=== PATIENT | male | born 1975 | race Two or more races ===

== ENCOUNTER 2019-03-19 11:09 | Inpatient (IN) | payer OTHER ==
[2019-03-19 17:10] VITALS: BMI 27.1
--- NOTE | 2019-03-19 17:39 | HP ---
CIWA Score Nausea/Vomitin-No Nausea/No Vomiting Muscle Tremors: None Anxiety: 1-Mildly Anxious Agitation: 3 Paroxysmal Sweats: No Perspiration (Increased facial moisture) Orientation: 0-Oriented Tacttile Disturbances: 0-None Auditory Disturbances: 0-None Visual Disturbances: 0-None Headache: 0-None Present CIWA-Ar Total Score: 4 - Admission Criteria OASAS Guidelines: Admission for Medically Managed Detox: Requires at least one of the followin. CIWA greater than 12 2. Seizures within the past 24 hours 3. Delirium tremens within the past 24 hours 4. Hallucinations within the past 24 hours 5. Acute intervention needed for co occurring medical disorder 6. Acute intervention needed for co occurring psychiatric disorder 7. Severe withdrawal that cannot be handled at a lower level of care (continued vomiting, continued diarrhea, abnormal vital signs) requiring intravenous medication and/or fluids 8. Admission ROS [facility] Chief Complaint: States mandated here by courts. Denies withdrawal symptoms. Allergies/Adverse Reactions: Allergies Allergy/AdvReac Type Severity Reaction Status Date / Time No Known Allergies Allergy Verified 03/19/19 17:03 History of Present Illness: Here for admission because of drug use. Last drink this am. States never has withdrawal symptoms when stops. Alcohol use began at age 15. States current use for many years. Marijuana use began at age 13. States used $50-$ 60 daily (States heavy marijuana use) Cocaine use began at age 22. 1 gm daily intra-nasal PCP use began at age @ 21. Nicotine use since age 13. Denies seizures, blackouts, overdoses. PMHx: (L) knee pain; MHHx: Insomnia. Some anxiety. Denies depression. Denies MH issues. Denies thoughts of harming self or others. Based on CIWA and substance use history, will admit to rehab. Patient Name: Yuan Palacio Date: 1975 Address: [address] [place] [address] Sex: Male Rx Written Rx Dispensed Drug Quantity Days Supply Prescriber Name 04/06/2018 04/06/2018 chlordiazepoxide 25 mg capsule 26 5 Elvis Musa Exam Limitations: No Limitations - Ebola screening Have you traveled outside of the country in the last 21 days: No Have you had contact with anyone from an Ebola affected area: No Have you been sick,other than usual withdrawal symptoms: No (No contact with measles) Do you have a fever: No - Review of Systems Constitutional: Changes in sleep (Difficulty falling asleep) EENT: reports: No Symptoms Reported Respiratory: reports: No Symptoms reported Cardiac: reports: No Symptoms Reported GI: reports: No Symptoms Reported : reports: No Symptoms Reported Musculoskeletal: reports: Joint Pain (Sharp (L) knee pain x 2 months. Pain is a "6". Increases with sleep. Improves w/ walking.) Integumentary: reports: No Symptoms Reported Neuro: reports: No Symptoms reported Endocrine: reports: No Symptoms Reported Hematology: reports: No Symptoms Reported Psychiatric: reports: Judgement Intact, Orientated x3, Agitated, Anxious Patient History - Patient Medical History Hx Asthma: No Hx Chronic Obstructive Pulmonary Disease (COPD): No Hx Cardiac Disorders: No Hx Hypertension: No Hx Seizures: No Hx Diabetes: No Hx Gastrointestinal Disorders: No Hx Genitourinary Disorders: No Hx Sexually Transmitted Disorders: No Hx Renal Disease (ESRD): No Hx Human Immunodeficiency Virus (HIV): No Hx Hepatitis C: No Hx Depression: Yes Hx Suicide Attempt: No Hx Bipolar Disorder: No Hx Schizophrenia: No - Patient Surgical History Past Surgical History: No - PPD History Previous Implant?: Yes Documented Results: Negative w/o proof Implanted On Prior [facility] Admission?: Yes Date: 03/14/14 PPD to be Administered?: Yes - Smoking Cessation Smoking history: Current every day smoker Have you smoked in the past 12 months: Yes Aproximately how many cigarettes per day: 7 Hx Chewing Tobacco Use: No Initiated information on smoking cessation: Yes 'Breaking Loose' booklet given: 03/19/19 - Substance & Tx. History Hx Alcohol Use: Yes Hx Substance Use: Yes Substance Use Type: Alcohol, Cocaine, Marijuana, Tranquilizers (PCP) Hx Substance Use Treatment: Yes (outpatient) - Substances abused Alcohol Substance route: Oral Frequency: Daily Amount used: 1/5TH BACARDI Age of first use: 15 Date of last use: 03/19/19 PCP Substance route: Smoking Frequency: Daily Amount used: 3-4 BAGS Age of first use: 21 Date of last use: 03/19/19 Family Disease History - Family Disease History Family Disease History: Diabetes: Mother Admission Physical Exam [facility] - Vital Signs Vital Signs: Vital Signs - 24 hr 03/19/19 17:05 Temperature 98.1 F Pulse Rate 90 Respiratory 18 Rate Blood Pressure 117/75 - Physical General Appearance: Yes: No Apparent Distress, Nourished, Anxious HEENTM: Yes: EOMI, Hearing grossly Normal, Normocephalic, Normal Voice, DARION, Pharynx Normal Respiratory: Yes: Lungs Clear, Normal Breath Sounds, No Respiratory Distress Neck: Yes: No masses,lesions,Nodules, Supple Breast: Yes: Breast Exam Deferred Cardiology: Yes: Regular Rhythm, Regular Rate, S1, S2 Abdominal: Yes: Normal Bowel Sounds, Non Tender, Flat, Soft Genitourinary: Yes: Within Normal Limits Back: Yes: Normal Inspection Musculoskeletal: Yes: full range of Motion, Gait Steady Extremities: Yes: Normal Capillary Refill, Non-Tender 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 intact, Fully Oriented, Alert, Motor Strength 5/5 Integumentary: Yes: Normal Color, Dry, Warm Lymphatic: Yes: Within Normal Limits - Diagnostic (1) Cocaine dependence, uncomplicated Current Visit: Yes Status: Chronic (2) Nicotine dependence, uncomplicated Current Visit: Yes Status: Chronic Qualifiers: Nicotine product type: cigarettes Qualified Code(s): F17.210 - Nicotine dependence, cigarettes, uncomplicated (3) Insomnia Current Visit: Yes Status: Chronic Qualifiers: Insomnia type: unspecified Qualified Code(s): G47.00 - Insomnia, unspecified (4) Knee pain, left Current Visit: Yes Status: Chronic Qualifiers: Chronicity: chronic Qualified Code(s): M25.562 - Pain in left knee; G89.29 - Other chronic pain (5) Alcohol dependence Current Visit: Yes Status: Chronic Qualifiers: Substance use status: uncomplicated Qualified Code(s): F10.20 - Alcohol dependence, uncomplicated (6) Cannabis dependence Current Visit: Yes Status: Chronic (7) PCP dependence Current Visit: Yes Status: Chronic Cleared for Admission [facility] - Detox or Rehab Claeared for Rehab Admission: Yes Breathalyzer - Breathalyzer Breathalyzer: 0 Urine Drug Screen - Test Device Lot number: [id number] Expiration date: 02/29/20 - Control Is test valid?: Yes - Results Drug screen NEGATIVE: No Urine drug screen results: THC-Marijuana, SANYA-Cocaine Inpatient Rehab Admission - Rehab Decision to Admit Inpatient rehab admission?: Yes - Initial Determination Are CD services needed?: Yes Free of communicable disease: Yes Not in need of hospitalization: Yes - Rehab Admission Criteria Previous failed treatment: Yes Poor recovery environment: Yes Comorbidities: No Lacks judgement: No Patient is meeting Inpatient Rehab admission criteria:: Yes
[2019-03-19] MEDS ORDERED: guaiFENesin 200 MG/10 ML 10 ML UNIT-DOSE CUPS PO PRN (18:08)
[2019-03-19] MEDS ORDERED: MAGNESIUM CITRATE 300 ML BOTTLE PO PRN (18:08)
[2019-03-19] MEDS ORDERED: NICOTINE POLACRILEX 2 MG GUM BC PRN (18:08)
[2019-03-19] MEDS ORDERED: IBUPROFEN 400 MG TABLET (FP) PO PRN (18:08)
[2019-03-19] MEDS ORDERED: hydrOXYzine PAMOATE 50 MG CAPSULE (FP) PO PRN (18:08)
[2019-03-19] MEDS ORDERED: MAGNESIUM HYDROX 2400MG/30ML ORAL SUSPENSION 30 ML CUP PO PRN (18:08)
[2019-03-19] MEDS ORDERED: LOPERAMIDE HCL 2 MG CAPSULE PO PRN (18:08)
[2019-03-19] MEDS ORDERED: ACETAMINOPHEN 325 MG TABLET (FP) PO PRN (18:08)
[2019-03-19] MEDS ORDERED: MAG HYDROX/AL HYDROX/SIMETH 30 ML UNIT-DOSE CUP PO PRN (18:08)
[2019-03-19] MEDS ORDERED: MENTHOL/PHENOL 1 EACH UD MM PRN (18:08)
[2019-03-19] MEDS ORDERED: P-EPHED 60MG/TRIPROLIDI 2.5MG TABLET PO PRN (18:08)
[2019-03-19] MEDS ORDERED: ONDANSETRON *ODT* 4 MG TABLET SL PRN (18:11)
[2019-03-19] MEDS ORDERED: TUBERCULIN PPD 5 TU/0.1ML VIAL ID ONE (20:00)
[2019-03-19 20:15] LABS: PH,URINE 5.5 (5.0-8.0); URINE APPEARANCE CLEAR; URINE BILIRUBIN NEGATIVE (NEGATIVE); URINE COLOR YELLOW; URINE GLUCOSE (UA) NEGATIVE (NEGATIVE); URINE KETONE NEGATIVE (NEGATIVE); URINE LEUK ESTERASE NEGATIVE (NEGATIVE); URINE NITRITE NEGATIVE (NEGATIVE); URINE PROTEIN NEGATIVE (NEGATIVE); URINE UROBILINOGEN 0.2 mg/dL (0.2-1.0)
[2019-03-19] MEDS: THIAMINE HCL 100 MG TABLET (FP) PO SCH (21:41)
[2019-03-19] MEDS: MELATONIN 5 MG TABLETS PO PRN (21:41)
[2019-03-19] MEDS: traZODone HCL 50 MG TABLET (FP) PO SCH (21:43)
[2019-03-20] MEDS: PRENATAL VITAMINS W/ FOLIC ACID TABLET (FP) PO SCH (10:51)
[2019-03-20] MEDS: NICOTINE 14 MG/24 HOURS TOPICAL PATCH TD SCH (10:51)
[2019-03-20 11:00] LABS: ALBUMIN 3.4 g/dl (3.4-5.0); ALK PHOS 97 U/L (45-117); ANION GAP 4 MMOL/L (8-16); BILIRUBIN,TOTAL 0.3 mg/dL (0.2-1); BLOOD UREA NITROGEN 14 mg/dL (7-18); CHLORIDE 107 mmol/L (98-107); CO2 28 mmol/L (21-32); GLUCOSE,RANDOM 94 mg/dL (74-106); POTASSIUM 4.3 mmol/L (3.5-5.1); SGOT/AST 17 U/L (15-37); SGPT/ALT 37 U/L (13-61); SODIUM 139 mmol/L (136-145); TOT PROT 6.8 g/dl (6.4-8.2)
[2019-03-20 11:01] LABS: HEMATOCRIT 40.4 % (35.4-49); HEMOGLOBIN 13.6 GM/dL (11.7-16.9); MCH 30.6 pg (25.7-33.7); MCHC 33.6 g/dl (32.0-35.9); MEAN CELL VOLUME 91.3 fl (80-96); MEAN PLT VOLUME 9.4 fl (7.5-11.1); PLATELET COUNT 247 K/MM3 (134-434); RBC 4.43 M/mm3 (4.00-5.60); WHITE BLOOD COUNT 6.5 K/mm3 (4.0-10.0)
[2019-03-20] MEDS: THIAMINE HCL 100 MG TABLET (FP) PO SCH (21:19)
[2019-03-20] MEDS: traZODone HCL 50 MG TABLET (FP) PO SCH (21:19)
[2019-03-20] MEDS: MELATONIN 5 MG TABLETS PO PRN (21:19)
[2019-03-21] MEDS: NICOTINE 14 MG/24 HOURS TOPICAL PATCH TD SCH (09:41)
[2019-03-21] MEDS: PRENATAL VITAMINS W/ FOLIC ACID TABLET (FP) PO SCH (09:41)
--- NOTE | 2019-03-21 14:29 | EKG ---
Test Reason : Blood Pressure : / mmHG Vent. Rate : 083 BPM Atrial Rate : 083 BPM P-R Int : 152 ms QRS Dur : 094 ms QT Int : 360 ms P-R-T Axes : 071 058 052 degrees QTc Int : 423 ms NORMAL SINUS RHYTHM NORMAL ECG NO PREVIOUS ECGS AVAILABLE Confirmed by MD NANCY, TUAN ([id number]) on 03/21/2019 2:28:59 PM Referred By: Confirmed By:TUAN CRUZ MD
[2019-03-21] MEDS: THIAMINE HCL 100 MG TABLET (FP) PO SCH (21:30)
[2019-03-21] MEDS: traZODone HCL 50 MG TABLET (FP) PO SCH (21:30)
[2019-03-22] MEDS: NICOTINE 14 MG/24 HOURS TOPICAL PATCH TD SCH (10:22)
[2019-03-22] MEDS: PRENATAL VITAMINS W/ FOLIC ACID TABLET (FP) PO SCH (10:22)
[2019-03-22] MEDS: THIAMINE HCL 100 MG TABLET (FP) PO SCH (21:11)
[2019-03-22] MEDS: traZODone HCL 50 MG TABLET (FP) PO SCH (21:11)
[2019-03-22] MEDS: MELATONIN 5 MG TABLETS PO PRN (21:11)
[2019-03-23] MEDS: NICOTINE 14 MG/24 HOURS TOPICAL PATCH TD SCH (10:28)
[2019-03-23] MEDS: PRENATAL VITAMINS W/ FOLIC ACID TABLET (FP) PO SCH (10:28)
[2019-03-23] MEDS: traZODone HCL 50 MG TABLET (FP) PO SCH (21:44)
[2019-03-23] MEDS: THIAMINE HCL 100 MG TABLET (FP) PO SCH (21:44)
[2019-03-24] MEDS: PRENATAL VITAMINS W/ FOLIC ACID TABLET (FP) PO SCH (10:09)
[2019-03-24] MEDS: NICOTINE 14 MG/24 HOURS TOPICAL PATCH TD SCH (10:09)
[2019-03-24] MEDS ORDERED: COLLOIDAL OATMEAL 1 BAR EACH TP PRN (14:22)
[2019-03-24] MEDS: traZODone HCL 50 MG TABLET (FP) PO SCH (21:38)
[2019-03-24] MEDS: MELATONIN 5 MG TABLETS PO PRN (21:38)
[2019-03-24] MEDS: THIAMINE HCL 100 MG TABLET (FP) PO SCH (21:38)
[2019-03-25] MEDS: PRENATAL VITAMINS W/ FOLIC ACID TABLET (FP) PO SCH (09:59)
[2019-03-25] MEDS: NICOTINE 14 MG/24 HOURS TOPICAL PATCH TD SCH (10:00)
[2019-03-25] MEDS: traZODone HCL 50 MG TABLET (FP) PO SCH (21:14)
[2019-03-25] MEDS: MELATONIN 5 MG TABLETS PO PRN (21:14)
[2019-03-25] MEDS: THIAMINE HCL 100 MG TABLET (FP) PO SCH (21:14)
[2019-03-26 07:01] VITALS: BP 94/56; PULSE 76; TEMP 97.5
[2019-03-26] MEDS: PRENATAL VITAMINS W/ FOLIC ACID TABLET (FP) PO SCH (10:13)
[2019-03-26] MEDS: NICOTINE 14 MG/24 HOURS TOPICAL PATCH TD SCH (10:13)
--- NOTE | 2019-03-26 11:30 | PN ---
S Progress Note Note: c/o left knee and left shoulder pain. States he was supposed to have knee surgery, but had to come to rehab first. Also states he has a tear in the left shoulder. Has had motrin and tylenol with minimal effect. PE: shoulder and knee with limited ROM, crepitis. Plan: GEOVANY bandage and lidocaine patch ordered.
[2019-03-26] MEDS: LIDOCAINE 5% TOPICAL PATCH TP SCH (13:14)
[2019-03-26] MEDS: traZODone HCL 50 MG TABLET (FP) PO SCH (21:30)
[2019-03-26] MEDS: THIAMINE HCL 100 MG TABLET (FP) PO SCH (21:30)
[2019-03-26] MEDS: MELATONIN 5 MG TABLETS PO PRN (21:30)
[2019-03-26] MEDS ORDERED: LIDOCAINE PATCH REMOVAL MC SCH (22:00)
[2019-03-27] MEDS: PRENATAL VITAMINS W/ FOLIC ACID TABLET (FP) PO SCH (10:49)
[2019-03-27] MEDS: LIDOCAINE 5% TOPICAL PATCH TP SCH (10:49)
[2019-03-27] MEDS: NICOTINE 14 MG/24 HOURS TOPICAL PATCH TD SCH (10:50)
--- NOTE | 2019-03-27 12:10 | PN ---
[facility] Progress Note Note: PT SIGNED AMA TODAY, HE STATES "I DON'T LIKE THIS PLACE ANYMORE, I CAN'T WATCH MY TV PROGRAMS I WANT". ATTEMPT TO LET PT STAY AND CONTINUE TREATMENT FAILED. PT REPORTS HE HAS NO PCP BECAUSE HE DOESN'T SEE ANY NEED FOR IT. PT IS EDUCATED ON THE IMPORTANCE OF HAVING A PCP BUT STILL TO KNOW AVAIL. PT STATES " I WILL GET ONE WHEN I'M 49YRS OLD". PT REFUSED TO FOLLOW UP WITH OUTPATIENT CD PROGRAM, NEW [facility]OC[facility] OUTPATIENT REFERRED BY HIS COUNSELOR, MS VINCENZO CONLEY BUT INSTEAD REPORTS HE IS GOING TO [facility] TO CONTINUE HIS CD TREATMENT. PT IS AOX3 AND IN NO DISTRESS AT THE MOMENT. DENIES ANY SI/HI AT THIS TIME. Lab Results WBC 6.5 K/mm3 (4.0-10.0) 03/20/19 07:00 RBC 4.43 M/mm3 (4.00-5.60) 03/20/19 07:00 Hgb 13.6 GM/dL (11.7-16.9) 03/20/19 07:00 Hct 40.4 % (35.4-49) 03/20/19 07:00 MCV 91.3 fl (80-96) 03/20/19 07:00 MCHC 33.6 g/dl (32.0-35.9) 03/20/19 07:00 RDW 14.0 % (11.9-15.9) 03/20/19 07:00 Plt Count 247 K/MM3 (134-434) 03/20/19 07:00 Sodium 139 mmol/L (136-145) 03/20/19 07:00 Potassium 4.3 mmol/L (3.5-5.1) 03/20/19 07:00 Chloride 107 mmol/L (98-107) 03/20/19 07:00 Carbon Dioxide 28 mmol/L (21-32) 03/20/19 07:00 Anion Gap 4 MMOL/L (8-16) L 03/20/19 07:00 BUN 14 mg/dL (7-18) 03/20/19 07:00 Creatinine 1.0 mg/dL (0.55-1.3) 03/20/19 07:00 Random Glucose 94 mg/dL (74-106) 03/20/19 07:00 Calcium 9.0 mg/dL (8.5-10.1) 03/20/19 07:00 Vital Signs 03/27/19 06:39 Respiratory 18 Rate Vital Signs - 24 hr 03/27/19 03/27/19 03/27/19 00:30 03:30 06:39 Respiratory 18 18 18 Rate LABS NOTED NAD MEDICALLY STABLE PLAN:FOLLOW-UP WITH CD AFTERCARE TO [facility] ( PER PT) FOLLOW-UP WITH A MEDICAL PRACTIONER WITHIN 1-2WEEKS.
== END 2019-03-27 12:45 | disposition left against medical advice (07) | DRG 770 ==
LOC: YASAS 11:09 → Y3W 18:03
PROVIDERS: ADMIT Neuromusculoskeletal Medicine & OMM; ATTEND Neuromusculoskeletal Medicine & OMM
PROC: HZ42ZZZ Group Counseling for Substance Abuse Treatment, Cognitive-Behavioral (ICD-10-PCS; principal; 2019-03-19)
DX: F10.20 Alcohol dependence, uncomplicated (principal); F14.20 Cocaine dependence, uncomplicated; F12.20 Cannabis dependence, uncomplicated; F16.20 Hallucinogen dependence, uncomplicated; F17.210 Nicotine dependence, cigarettes, uncomplicated; M25.562 Pain in left knee; M25.512 Pain in left shoulder; G89.29 Other chronic pain
CPT/HCPCS: 36415; 80053; 81003; 85027; 86593; 93005; 93010